=== PATIENT | male | born 1995 | race Caucasian/White ===

== ENCOUNTER 2018-09-28 20:08 | Emergency (ER) | payer SELFPAY ==
[~2018-09-28] VITALS: Ht 160 cm; Wt 69.0 kg
[2018-09-28] MEDS ORDERED: SODIUM CHLORIDE 0.9% 1,000 ML IV ONE ×2 (20:33→22:15)
[2018-09-28 21:10] LABS: CHLORIDE 108 mEq/L (98-107)
[2018-09-28 21:13] LABS: BASOPHILS % 0.5 % (0.0-2.0); EOSINOPHILS % 0.2 % (0.0-5.0); HEMATOCRIT. 50.3 % (42.0-52.0); HEMOGLOBIN. 17.6 g/dL (14.0-18.0); LYMPHOCYTES % 17.6 % (20.0-50.0); MEAN CORPUSCULAR HEMOGLOBIN 34.2 pg (28.0-32.0); MEAN CORPUSCULAR VOLUME 97.9 fL (80.0-94.0); MONOCYTES % 12.1 % (2.0-8.0); NEUTROPHILS % 69.6 % (40.0-76.0); PLATELET 244 x1000/uL (130-400); RED BLOOD CELL COUNT 5.14 mill/uL (4.7-6.1); RED CELL DISTRIBUTION WIDTH 13.2 % (11.6-14.6)
[2018-09-28 21:14] LABS: ETHANOL BLOOD < 10 mg/dL
[2018-09-28] MEDS ORDERED: KETOROLAC 15MG/ML VIAL IV ONE (22:00)
[2018-09-28] MEDS ORDERED: VANCOMYCIN 1 G PREMIX 200 ML IV ONE (22:15)
[2018-09-28] MEDS ORDERED: PIPERACILLIN/TAZ 3.375G PREMIX 50 ML IV ONE (22:15)
[2018-09-28] MEDS: VALPROATE SODIUM 500 MG in SODIUM CHLORIDE 0.9% 100 ML IV SCH ×2 (22:19→22:25)
[2018-09-28 22:53] LABS: CLARITY URINE CLEAR (CLEAR); COLOR URINE YELLOW (YELLOW); KETONES URINE TRACE (NEGATIVE); LEUKOCYTE ESTERASE URINE NEGATIVE (NEGATIVE); NITRITE URINE NEGATIVE (NEGATIVE); OCCULT BLOOD URINE NEGATIVE (NEGATIVE); PROTEIN URINE NEGATIVE (NEGATIVE); SPECIFIC GRAVITY URINE 1.032 (1.005-1.030)
[2018-09-29 00:52] VITALS: BP 130/70
== END 2018-09-29 00:59 | disposition home or self-care (01) ==
LOC: ER 20:08
DX: G40.909 Epilepsy, unspecified, not intractable, without status epilepticus (principal); L03.114 Cellulitis of left upper limb; L03.113 Cellulitis of right upper limb; R03.0 Elevated blood-pressure reading, without diagnosis of hypertension
CPT/HCPCS: 36415; 71045; 73560; 80053; 80165; 80320; 81003; 83605; 85025; 87040; 96361; 96365; 96366; 96368; 96375; 99284; J1885; J3370; J3490; J7030; J7050; G0480